=== PATIENT | female | born 1955 | race Caucasian/White ===

== ENCOUNTER 2018-06-21 07:11 | Emergency (ER) | payer MEDICARE, BC ==
[~2018-06-21] VITALS: Ht 170.2 cm; Wt 94.8 kg
--- OUTSIDE RECORDS SUMMARY | 2018-06-21 07:14 | XMS REPORT | Clinical Summary ---
Author Author [facility] Address Unknown Phone Unavailable Care Team Providers Care Health Promotion Coordinator Name Role Phone Scott Stevens DO PCP Allergies Comments Active Allergy Reactions Severity Noted Date Sulfa (Sulfonamide Rash Low 12/29/2017 Antibiotics) Medications End Date Status Medication Sig Dispensed Refills Start Date Active amLODIPine (NORVASC) 10 Take 10 mg by 0 mg tablet mouth daily. Active levothyroxine (SYNTHROID, Take 200 mcg 0 LEVOXYL) 200 mcg tablet by mouth every morning. Active fenofibrate (LOFIBRA) 160 Take 160 mg 0 MG tablet by mouth every evening. Active simvastatin (ZOCOR) 20 MG Take 20 mg by 0 tablet mouth every morning. Active sertraline (ZOLOFT) 100 Take 150 mg 0 MG tablet by mouth daily. Active zolpidem (AMBIEN) 10 mg Take 10 mg by 0 tablet mouth nightly as needed for sleep. Active LORAZepam (ATIVAN) 1 MG Take 1 mg by 0 tablet mouth daily as needed for anxiety. 01/02/2018 Discontinued irbesartan-hydrochlorothi Take 1 tablet 0 azide (AVALIDE) 300-12.5 by mouth mg per tablet daily. 01/02/2018 Discontinued metoprolol succinate XL Take 200 mg 0 (TOPROL-XL) 200 mg 24 hr by mouth 8 tablet every morning. 01/02/2018 Discontinued clonIDINE (CATAPRES) 0.1 Take 0.1 mg 0 MG tablet by mouth every morning. BP > 150/90 02/01/2018 carvedilol (COREG) 25 MG Take 1 tablet 60 tablet 0 tablet (25 mg total) 8 by mouth 2 (two) times a day for 30 days. 02/02/2018 losartan (COZAAR) 100 MG Take 1 tablet 30 tablet 0 tablet (100 mg 8 total) by mouth daily for 30 days. 02/02/2018 clonIDINE HCl (CATAPRES) Take 1 tablet 30 tablet 0 0.2 MG tablet (0.2 mg 8 total) by mouth every morning for 30 days. 02/02/2018 aspirin 81 mg chewable Chew 1 tablet 30 tablet 0 tablet (81 mg total) 8 daily for 30 days. 02/02/2018 hydroCHLOROthiazide Take 1 tablet 30 tablet 0 (HYDRODIURIL) 25 MG (25 mg total) 8 tablet by mouth daily for 30 days. Active Problems Problem Noted Date Chest pain 12/30/2017 HTN (hypertension), malignant 12/30/2017 Disease of thyroid gland 12/30/2017 Depression 12/30/2017 HLD (hyperlipidemia) 12/30/2017 Shortness of breath 12/30/2017 Acute systolic congestive heart failure 12/30/2017 Encounters Care Team Description Date Type Specialty Nirav Nicole MD Mayen Nunez, Jose Isaias, MD HTN (hypertension), malignant (Primary Dx); Chest pain, unspecified type; Acute congestive heart failure, unspecified congestive heart failure type; Secondary hypertension 12/29/2017 [facility] General Internal Medicine - Encounter 01/02/2018 after 06/20/2017 Social History Date Tobacco Use Types Packs/Day Years Used Former Smoker Comments: stoped 28 yrs ago Alcohol Use Drinks/Week oz/Week Comments Yes every 6 mos Sex Assigned at Date Recorded Not on file Industry Job Start Date Occupation Not on file Not on file Not on file Travel End Travel History Travel Start No recent travel history available. Last Filed Vital Signs Time Taken Vital Sign Reading 01/02/2018 3:33 PM CDT Blood Pressure 145/66 01/02/2018 3:33 PM CDT Pulse 64 01/02/2018 3:33 PM CDT Temperature 37 C (98.6 F) 01/02/2018 3:33 PM CDT Respiratory Rate 20 01/02/2018 3:33 PM CDT Oxygen Saturation 90% - Inhaled Oxygen - Concentration 12/30/2017 9:00 AM CDT Weight 93.9 kg (207 lb 0.2 oz) 12/29/2017 7:49 PM CDT Height 170.2 cm (5' 7") 12/30/2017 9:00 AM CDT Body Mass Index 32.42 Plan of Treatment Health Maintenance Due Date Last Done Comments CERVICAL CANCER SCREENING 1974 BREAST CANCER SCREENING 2003 COLON CANCER SCREENING 2003 SHINGLES VACCINES (#1) 2003 INFLUENZA VACCINE 11/25/2017 65+ PNEUMOCOCCAL VACCINE 2018 (1 of 2 - PCV13) PNEUMOCOCCAL 2018 POLYSACCHARIDE VACCINE AGE 65 AND OVER Procedures Comments Procedure Name Priority Date/Time Associated Diagnosis ECHOCARDIOGRAM 2D Routine 12/30/2017 COMPLETE W MMODE SPECTRAL 8:05 AM CDT COLOR DOPPLER (80317) ZZESTIMATED GFR Routine 12/30/2017 4:30 AM CDT TROPONIN Routine 12/30/2017 4:30 AM CDT COMPREHENSIVE METABOLIC Routine 12/30/2017 PANEL 4:30 AM CDT MAGNESIUM LEVEL Routine 12/30/2017 4:30 AM CDT PHOSPHORUS LEVEL Routine 12/30/2017 4:30 AM CDT HC COMPLETE BLD COUNT Routine 12/30/2017 W/AUTO DIFF 4:30 AM CDT ECG 12-LEAD Routine 12/30/2017 2:13 AM CDT ZZESTIMATED GFR STAT 12/29/2017 9:24 PM CDT B NATRIURETIC PEPTIDE STAT 12/29/2017 9:24 PM CDT TROPONIN STAT 12/29/2017 9:24 PM CDT LIPASE LEVEL STAT 12/29/2017 9:24 PM CDT HEPATIC FUNCTION PANEL STAT 12/29/2017 9:24 PM CDT BASIC METABOLIC PANEL STAT 12/29/2017 9:24 PM CDT HC COMPLETE BLD COUNT STAT 12/29/2017 W/AUTO DIFF 9:24 PM CDT XR CHEST 1 VW PORTABLE STAT 12/29/2017 9:19 PM CDT ECG ED PRELIMINARY Routine 12/29/2017 INTERPRETATION 9:03 PM CDT SC CRITICAL CARE, E/M Routine 12/29/2017 30-74 MINUTES 9:03 PM CDT ECG 12-LEAD Routine 12/29/2017 8:17 PM CDT after 06/20/2017 Results * Echocardiogram complete w contrast and 3D if needed (12/30/2017 8:05 AM CDT) Velocity Ratio (V1/V2) 0.59 m/s [facility] IVS,d 1.21 cm [facility] EF 58.38 % [facility] LA volume 124.0 cm3 [facility] LVPWD,d 1.19 cm [facility] AoV Mean PG 5.80 mmHg [facility] AV LVOT peak gradient 3.64 mmHg [facility] MV valve area p 1/2 4.26 cm2 [facility] method E/A ratio 1.89 [facility] E wave decelartion time 161.36 msec [facility] LVOT Diam,S 1.99 cm [facility] LVOT area 3.11 cm2 [facility] LVOT Vmax 0.95 m/s [facility] LVOT VTI 0.25 m [facility] AoV Peak PG 10.52 mmHg [facility] MV Peak E Mir 0.87 m/s [facility] MV stenosis pressure 1/2 51.70 ms [facility] time MV Peak A Mir 0.46 m/s [facility] LV Vol,s A2C 40.55 mL [facility] LV Vol,d A2C 122.66 mL [facility] AoV Area, Vmax 1.83 cm2 [facility] AoV Area, VTI 1.97 cm2 [facility] AoV Vmax 1.62 m/s [facility] LA Area d A4C 98 cm2 [facility] LV,d 5.46 cm [facility] LV,s 3.76 cm [facility] LV Vol,d A4C 129.54 ml [facility] LV Vol,s A4C 46.40 ml [facility] TR Vpeak 2.68 mm/s [facility] MV E A ratio 1.89 mmHg [facility] RA pressure 5.00 mmHg [facility] TR pk grad 27.45 mmHg [facility] MR peak grad 117.68 mmHg [facility] RVSP 33.80 mmHg [facility] AR Press Half Time 645.51 ms [facility] LV SYS VOL 60.24 ml [facility] LV BATES VOL 144.75 ml [facility] LA diam s 5.00 cm [facility] LA Vol MOD A4C 97.80 ml [facility] LV SV Teich 2D 84.51 ml [facility] LVOT SI 37.15 ml/m2 [facility] AoV Cusp sep 1.28 [facility] Aortic Root 2.98 cm [facility] AoV Vmn 1.15 [facility] AR slope 1.69 [facility] Ar Vmax 3.76 [facility] IVS s 2D 1.44 [facility] LA Ao Ratio Mmode 1.66 [facility] SC End Bates Grad 4.60 [facility] SC End Diat Mir 1.07 [facility] AR maxPG 56.70 [facility] D E excurs 1.50 [facility] E f slope 0.10 [facility] E prime lat 0.08 [facility] E debra sept 0.06 [facility] PV acc T slope 8.10 [facility] PV AT 86.51 msec [facility] AoV VTI 0.39 m [facility] LV EF,A2C 66.94 % [facility] LV EF,A4C 64.18 % [facility] LV EF,BP 65.72 % [facility] [place],d A2C 8.32 cm [facility] [place],d A4C 7.99 cm [facility] [place],s A2C 7.47 cm [facility] [place],s A4C 7.22 cm [facility] LV SV,A2C 82.11 % [facility] LV SV,A4C 83.13 % [facility] LV Vol,d BP 127.53 ml [facility] LV Vol,s BP 43.72 nl [facility] MR Vmax 5.42 m/s [facility] LVOT Vmn 0.71 [facility] Pt Size 170.18 [facility] Pt Wt 93.89 [facility] LVOT mean grad 2.18 mmHg [facility] AR DT 2,225.89 msec [facility] AR pk grad 56.70 mmHg [facility] LVPW s PLAX 1.64 cm [facility] MV Decel slope 5.39 m/s2 [facility] Narrative Performed At [facility] The left ventricle chamber size is normal. There is mild left ventricular concentric hypertrophy. Left Ventricular ejection fraction is 60 - 65%. No pericardial effusion The mitral valve appears thickened. There is mild sclerosis of the aortic valve leaflets. Normal pulmonary artery systolic pressure. RA pressure is normal. Performing Organization Address City/[facility] Cent[facility] Phone Number [facility] [address] [place] [address] * Estimated GFR (12/30/2017 4:30 AM CDT) Only the most recent of 2 results within the time period is included. GFR Non Af Amer 84 mL/min/1.73 m2 [facility] DEPARTMENT OF PATHOLOGY AND GENOMIC MEDICINE GFR Af Amer >90 mL/min/1.73 m2 [facility] DEPARTMENT OF Comment: PATHOLOGY AND Chronic kidney disease: <60 GENOMIC MEDICINE mL/min/1.73m2 Kidney failure: <15 mL/min/1.73m2 The estimated GFR is calculated from the IDMS-traceable Modification of Diet in Renal Disease Equation. The accuracy of the calculation is poor when the creatinine is normal. Calculated values >90 mL/min/1.73m2 are not reported. This equation has not been validated in children (<18 years), women, the elderly (>70 years), or ethnic groups other than Caucasians and Americans. Specimen Plasma specimen Performing Organization Address [facility] Phone Number [address] [place] [address] PATHOLOGY AND GENOMIC MEDICINE * Troponin (12/30/2017 4:30 AM CDT) Only the most recent of 2 results within the time period is included. Troponin <0.300 0.000 - 0.300 ng/mL [facility] DEPARTMENT OF Comment: PATHOLOGY AND 0.30 - 1.49 GENOMIC MEDICINE ng/mlMay indicate increased risk of acute coronary syndrome. >=1.5 ng/ml Consistent with acute myocardial infarction. The diagnostic value of a single normal or non-diagnostic result is questionable.Serial samples at 2-6 hour intervals are required to rule out acute myocardial injury. Specimen Plasma specimen Performing Organization Address [facility] Phone Number [address] [place] [address] [facility] * CBC with platelet and differential (12/30/2017 4:30 AM CDT) Only the most recent of 2 results within the time period is included. WBC 5.18 4.50 - 11.00 k/uL [facility] DEPARTMENT OF PATHOLOGY AND GENOMIC MEDICINE RBC 3.77 (L) 4.20 - 5.50 m/uL [facility] DEPARTMENT OF PATHOLOGY AND GENOMIC MEDICINE HGB 11.3 (L) 12.0 - 16.0 g/dL [facility] DEPARTMENT OF PATHOLOGY AND GENOMIC MEDICINE HCT 33.2 (L) 37.0 - 47.0 % [facility] DEPARTMENT OF PATHOLOGY AND GENOMIC MEDICINE MCV 88.1 82.0 - 100.0 fL [facility] DEPARTMENT OF PATHOLOGY AND GENOMIC MEDICINE MCH 30.0 27.0 - 34.0 pg [facility] DEPARTMENT OF PATHOLOGY AND GENOMIC MEDICINE MCHC 34.0 31.0 - 37.0 g/dL [facility] DEPARTMENT OF PATHOLOGY AND GENOMIC MEDICINE RDW - SD 50.4 37.0 - 55.0 fL [facility] DEPARTMENT OF PATHOLOGY AND GENOMIC MEDICINE MPV 12.0 8.8 - 13.2 fL [facility] DEPARTMENT OF PATHOLOGY AND GENOMIC MEDICINE Platelet count 142 (L) 150 - 400 k/uL [facility] DEPARTMENT OF PATHOLOGY AND GENOMIC MEDICINE Nucleated RBC 0.00 /100 WBC [facility] DEPARTMENT OF PATHOLOGY AND GENOMIC MEDICINE Neutrophils 59.2 39.0 - 69.0 % [facility] DEPARTMENT OF PATHOLOGY AND GENOMIC MEDICINE Lymphocytes 26.8 25.0 - 45.0 % [facility] DEPARTMENT OF PATHOLOGY AND GENOMIC MEDICINE Monocytes 12.0 (H) 0.0 - 10.0 % [facility] DEPARTMENT OF PATHOLOGY AND GENOMIC MEDICINE Eosinophils 1.4 0.0 - 5.0 % [facility] DEPARTMENT PATHOLOGY AND GENOMIC MEDICINE Basophils 0.4 0.0 - 1.0 % [facility] DEPARTMENT OF PATHOLOGY AND GENOMIC MEDICINE Specimen Blood Performing Organization Address City/[facility]/Zipcode Phone Number [facility] [address] [place] [address] PATHOLOGY [facility] * Phosphorus level (12/30/2017 4:30 AM CDT) Phosphorus 4.5 2.4 - 4.5 mg/dL [facility] DEPARTMENT OF PATHOLOGY AND GENOMIC MEDICINE Specimen Plasma specimen Performing Organization Address City/[facility]/Zipcode Phone Number [facility] [place] [address] [place] [address] PATHOLOGY AND GENOMIC MEDICINE * Magnesium level (12/30/2017 4:30 AM CDT) Magnesium 1.5 (L) 1.6 - 2.4 mg/dL [facility] DEPARTMENT OF PATHOLOGY AND GENOMIC MEDICINE Specimen Plasma specimen Performing Organization Address City/State/Zipcode Phone Number [place] [address] [place] [address] PATHOLOGY AND GENOMIC MEDICINE * Comprehensive metabolic panel (12/30/2017 4:30 AM CDT) Sodium 140 135 - 148 mEq/L [facility] DEPARTMENT OF PATHOLOGY AND GENOMIC MEDICINE Potassium 3.5 3.5 - 5.0 mEq/L [facility] DEPARTMENT OF PATHOLOGY AND GENOMIC MEDICINE Chloride 104 98 - 112 mEq/L [facility] DEPARTMENT OF PATHOLOGY AND GENOMIC MEDICINE CO2 24 24 - 31 mEq/L [facility] DEPARTMENT OF PATHOLOGY AND GENOMIC MEDICINE Anion gap 12@ANIO 7 - 15 mEq/L [facility] DEPARTMENT OF PATHOLOGY AND GENOMIC MEDICINE BUN 13 8 - 23 mg/dL [facility] DEPARTMENT OF PATHOLOGY AND GENOMIC MEDICINE Creatinine 0.7 0.5 - 0.9 mg/dL [facility] DEPARTMENT OF PATHOLOGY AND GENOMIC MEDICINE Glucose 128 (H) 65 - 99 mg/dL [facility] DEPARTMENT OF PATHOLOGY AND GENOMIC MEDICINE Calcium 8.8 8.8 - 10.2 mg/dL [facility] DEPARTMENT OF PATHOLOGY AND GENOMIC MEDICINE Protein 6.8 6.3 - 8.3 g/dL [facility] DEPARTMENT OF Comment: PATHOLOGY AND GENOMIC MEDICINE 4.6-7.0 g/dL 1 week 4.4-7.6 g/dL 7 months-1year 5.1-7.3 g/dL 1-2 years5.6-7 .5 g/dL >3 years6.0-8 .0 g/dL 18-150 6.3-8.3 g/dL Albumin 3.7 3.5 - 5.0 g/dL [facility] DEPARTMENT OF PATHOLOGY AND GENOMIC MEDICINE A/G ratio 1.2 0.7 - 3.8 [facility] DEPARTMENT OF PATHOLOGY AND GENOMIC MEDICINE Alkaline phosphatase 85 35 - 104 U/L [facility] DEPARTMENT OF PATHOLOGY AND GENOMIC MEDICINE AST 32 10 - 35 U/L [facility] DEPARTMENT OF PATHOLOGY AND GENOMIC MEDICINE ALT 40 5 - 50 U/L [facility] DEPARTMENT OF PATHOLOGY AND [facility] Total bilirubin 0.7 0.0 - 1.2 mg/dL [facility] DEPARTMENT OF PATHOLOGY AND GENOMIC MEDICINE Specimen Plasma specimen Performing Organization Address [facility] Phone Number [address] [place] [address] PATHOLOGY AND [facility] * ECG 12 lead (12/30/2017 2:13 AM CDT) Only the most recent of 2 results within the time period is included. Ventricular rate 68 [facility] Atrial rate 68 [facility] SC interval 210 [facility] QRSD interval 70 [facility] QT interval 454 [facility] QTC interval 482 [facility] MUSE P axis 1 59 [facility] QRS axis 1 41 [facility] T wave axis 260 [facility] MUSE EKG impression Sinus rhythm with 1st degree [facility] MUSE AV block-Left ventricular hypertrophy with repolarization abnormality-Abnormal ECG-In automated comparison with ECG of 29-DEC-2017 20:17,-SC interval has increased-Vent. rate has decreased BY36 BPM-ST no longer depressed in Anterior leads-T wave inversion now evident in Lateral leads- Performing Organization Address [facility] Phone Number [facility] [address] [place] [address] * B natriuretic peptide (12/29/2017 9:24 PM CDT) BNP 398 (H) 0 - 100 pg/mL [facility] DEPARTMENT OF PATHOLOGY AND [facility] Specimen Blood Performing Organization Address [facility] Phone Number [address] [place] [address] PATHOLOGY AND [facility] * Lipase level (12/29/2017 9:24 PM CDT) Lipase 29 13 - 60 U/L [facility] DEPARTMENT OF PATHOLOGY AND GENOMIC MEDICINE Specimen Plasma specimen Performing Organization Address [facility] Phone Number [address] [place] [address] PATHOLOGY AND [facility] * Hepatic function panel (12/29/2017 9:24 PM CDT) Albumin 3.9 3.5 - 5.0 g/dL [facility] DEPARTMENT OF PATHOLOGY AND GENOMIC MEDICINE Total bilirubin 0.7 0.0 - 1.2 mg/dL [facility] DEPARTMENT OF PATHOLOGY AND GENOMIC MEDICINE Bilirubin direct <0.1 0.0 - 0.3 mg/dL [facility] DEPARTMENT OF PATHOLOGY AND GENOMIC MEDICINE Alkaline phosphatase 96 35 - 104 U/L [facility] DEPARTMENT OF PATHOLOGY AND GENOMIC MEDICINE Protein 7.0 6.3 - 8.3 g/dL [facility] DEPARTMENT OF Comment: PATHOLOGY AND GENOMIC MEDICINE 4.6-7.0 g/dL 1 week 4.4-7.6 g/dL 7 months-1year 5.1-7.3 g/dL 1-2 years5.6-7 .5 g/dL >3 years6.0-8 .0 g/dL 18-150 6.3-8.3 g/dL ALT 42 5 - 50 U/L [facility] DEPARTMENT OF PATHOLOGY AND GENOMIC MEDICINE AST 38 (H) 10 - 35 U/L [facility] DEPARTMENT OF PATHOLOGY AND GENOMIC MEDICINE Specimen Plasma specimen Performing Organization Address [facility] Phone Number [address] [place] [address] PATHOLOGY [facility] * Basic metabolic panel (12/29/2017 9:24 PM CDT) Sodium 140 135 - 148 mEq/L [facility] DEPARTMENT OF PATHOLOGY AND GENOMIC MEDICINE Potassium 3.4 (L) 3.5 - 5.0 mEq/L [facility] DEPARTMENT OF PATHOLOGY AND GENOMIC MEDICINE Chloride 106 98 - 112 mEq/L [facility] DEPARTMENT OF PATHOLOGY AND GENOMIC MEDICINE CO2 20 (L) 24 - 31 mEq/L [facility] DEPARTMENT OF PATHOLOGY AND GENOMIC MEDICINE Anion gap 14@ANIO 7 - 15 mEq/L [facility] DEPARTMENT OF PATHOLOGY AND GENOMIC MEDICINE BUN 13 8 - 23 mg/dL [facility] DEPARTMENT OF PATHOLOGY AND GENOMIC MEDICINE Creatinine 0.7 0.5 - 0.9 mg/dL [facility] DEPARTMENT OF PATHOLOGY AND GENOMIC MEDICINE Glucose 132 (H) 65 - 99 mg/dL [facility] DEPARTMENT OF PATHOLOGY AND GENOMIC MEDICINE Calcium 9.0 8.8 - 10.2 mg/dL [facility] DEPARTMENT OF PATHOLOGY AND GENOMIC MEDICINE Specimen Plasma specimen Performing Organization Address [facility] Cent[facility]ode Phone Number [address] [place] [address] PATHOLOGY [facility] GENOMIC [facility] * XR Chest 1 Vw Portable (12/29/2017 9:19 PM CDT) Narrative Performed At EXAMINATION: XR CHEST 1 VW PORTABLE [facility] CLINICAL HISTORY: chest pain COMPARISON:None. IMPRESSION: Mild right basilar infiltrate and/or volume loss. No pleural effusion or pneumothorax. Cardiac silhouette appears prominent due in part to technique. No acute osseous abnormalities. [facility]-[id number] Procedure Note Hm Interface, Radiology Results Incoming - 12/29/2017 9:23 PM CDT EXAMINATION: XR CHEST 1 VW PORTABLE CLINICAL HISTORY: chest pain COMPARISON: None. IMPRESSION: Mild right basilar infiltrate and/or volume loss. No pleural effusion or pneumothorax. Cardiac silhouette appears prominent due in part to technique. No acute osseous abnormalities. [facility]-[id number] Performing Organization Address City/State/Zipcode Phone Number [facility] [address] [place] [address] * ECG ED Preliminary Interpretation - NOT AN ORDER (12/29/2017 9:03 PM CDT) Narrative Performed At Nirav Nicole MD 12/30/20174:46 AM ECG ED Preliminary Interpretation - Not an Order Performed by: NIRAV NICOLE Authorized by: NIRAV NICOLE ECG reviewed by ED Physician in the absence of a automation/controls manager: yes Interpretation: Interpretation: normal Rate: ECG rate:72 ECG rate assessment: normal Rhythm: Rhythm: sinus rhythm QRS: QRS axis:Normal ST segments: ST segments:Normal T waves: T waves: normal * CRITICAL CARE (12/29/2017 9:03 PM CDT) Narrative Performed At Nirav Nicole MD 12/30/20174:46 AM Critical Care Performed by: NIRAV NICOLE Authorized by: NIRAV NICOLE Critical care provider statement: Critical care time (minutes):42 Critical care time was exclusive of:Separately billable procedures and treating other patients and teaching time Critical care was necessary to treat or prevent imminent or life-threatening deterioration of the following conditions:Cardiac failure (hypertensive emergency) Critical care was time spent personally by me on the following activities:Discussions with consultants, discussions with primary provider, evaluation of patient's response to treatment, examination of patient, obtaining history from patient or surrogate, re-evaluation of patient's condition, pulse oximetry, ordering and review of radiographic studies, ordering and review of laboratory studies, ordering and performing treatments and interventions and development of treatment plan with patient or surrogate after 06/20/2017 Advance Directives Patient has advance care planning documents on file. For more information, lorenza barragan contact: Eulogio Yañez [address] [place] [address]
[2018-06-21 07:45] LABS: BASOPHILS % 0.6 % (0.0-1.0); EOSINOPHILS # (AUTO) 0.1 (0.0-0.4); HEMATOCRIT 39.6 % (34.2-44.1); HEMOGLOBIN 13.6 g/dL (12.0-16.0); LYMPHOCYTES # (AUTO) 2.5 (1.0-3.2); LYMPHOCYTES % 49.8 % (18.0-39.1); MEAN CORPUSCULAR HEMOGLOBIN 28.8 pg (28-32); MEAN CORPUSCULAR HGB CONC 34.3 g/dL (31-35); MEAN CORPUSCULAR VOLUME 83.7 fL (81-99); MONOCYTES # (AUTO) 0.6 (0.2-0.8); MONOCYTES % 12.4 % (4.4-11.3); NEUTROPHILS # (AUTO) 1.7 (2.1-6.9); NEUTROPHILS % 34.6 % (38.7-80.0); PLATELET COUNT 203 x10e3/uL (140-360); RED BLOOD COUNT 4.73 x10e6/uL (3.6-5.1)
[2018-06-21] MEDS ORDERED: ASPIRIN 81 MG CHEW TAB PO ONE (07:45)
[2018-06-21] MEDS ORDERED: KETOROLAC TROMETHAMINE 30 MG/ML VIAL IV ONE (08:00)
[2018-06-21] MEDS ORDERED: ASPIRIN81 MG PO (08:02)
[2018-06-21] MEDS ORDERED: CLONIDINE HCL0.2 MG PO (08:02)
[2018-06-21] MEDS ORDERED: CARVEDILOL25 MG PO (08:02)
[2018-06-21] MEDS ORDERED: ESIDRIX25 MG PO (08:02)
[2018-06-21] MEDS ORDERED: LOSARTAN POTAS100 MG PO (08:02)
[2018-06-21 08:19] LABS: ALANINE AMINOTRANSFERASE 51 IU/L (0-55); ALBUMIN 3.8 g/dL (3.5-5.0); ALBUMIN/GLOBULIN RATIO 1.1 (0.8-2.0); ALKALINE PHOSPHATASE 107 IU/L (40-150); ANION GAP 12.8 mmol/L (8-16); BLOOD UREA NITROGEN 20 mg/dL (7-26); BUN/CREATININE RATIO 24 (6-25); CALCIUM 9.7 mg/dL (8.4-10.2); CARBON DIOXIDE 24 mmol/L (22-29); CHLORIDE 102 mmol/L (98-107); CREATINE KINASE 18 IU/L (29-168); CREATININE, SERUM 0.85 mg/dL (0.57-1.11); EST GLOMERULAR FILTRATION RATE > 60 ML/MIN (60-); GLUCOSE 111 mg/dL (74-118); POTASSIUM 3.8 mmol/L (3.5-5.1); SODIUM 135 mmol/L (136-145)
[2018-06-21 08:26] LABS: INR 0.89; PROTHROMBIN TIME 12.9 seconds (11.9-14.5)
[2018-06-21] MEDS ORDERED: LORAZEPAM INJ 2 MG/ML VIAL IV ONE (09:00)
--- NOTE | 2018-06-21 09:03 | Diagnostic Imaging Report ---
EXAM: CHEST SINGLE (PORTABLE), AP Portable DATE: 06/21/2018 Time stamp on exam: 8:40 AM INDICATION: Chest pain COMPARISON: None FINDINGS: LINES/TUBES: None LUNGS: No consolidations or edema. PLEURA: No effusions or pneumothorax. HEART AND MEDIASTINUM: Normal size and contour. BONES AND SOFT TISSUES: No acute findings. IMPRESSION: No acute thoracic abnormality. Signed by: Dr. Alex Jones DO on 06/21/2018 8:59 AM
== END 2018-06-21 10:46 | disposition home or self-care (01) ==
LOC: ER 07:11
DX: R07.89 Other chest pain (principal); I10 Essential (primary) hypertension; E03.9 Hypothyroidism, unspecified; E78.5 Hyperlipidemia, unspecified; F41.1 Generalized anxiety disorder; Z79.82 Long term (current) use of aspirin
CPT/HCPCS: 36415; 71045; 80053; 82550; 82553; 83880; 84484; 85025; 85379; 85610; 85730; 99284; J1885; J2060